=== PATIENT | female | born 1950 | race Caucasian/White ===

== ENCOUNTER 2016-08-28 17:19 | Emergency (ER) | payer MEDICARE, OTHER ==
[2016-08-28 17:53] LABS: Urine Appearance Slightly Cloudy; Urine Color Yellow
[2016-08-28 17:55] LABS: Urine Bilirubin Negative (NEGATIVE); Urine Blood 250 /ul (NEGATIVE); Urine Ketone Negative (NEGATIVE); Urine Nitrite Negative (NEGATIVE); Urine Protein 15 mg/dL (NEGATIVE); Urine Urobilinogen Normal (NORMAL)
[2016-08-28 17:56] LABS: Urine RBC >50 /hpf (0-5)
[2016-08-28 17:58] LABS: Urine Bacteria 1+
--- OUTSIDE RECORDS SUMMARY | 2016-08-28 18:01 | XMS REPORT | Continuity of Care Document ---
:1950 Author Organization [employer] [place] [address] Care Team Providers Name Role Phone Enrike Cordoba Evelina Primary Care Provider [phone] Source Comments This disclosure is being made pursuant to the [employer] program and maynot contain all information available regarding this patient.[employer] Active Allergies and Adverse Reactions Not on File Current Medications Be aware that medications may not be up to date as of this document. Alwaysverify current medications with the patient. Prescription Sig. Disp. Refills Start Date End Date Status levothyroxine (SYNTHROID, Take 75 mcg by Active LEVOTHROID) 75 MCG tablet mouth daily. omeprazole (PRILOSEC) 20 MG Take 20 mg by Active capsule mouth 2 (two) times daily. [id number] Take by mouth. Active (CEREFOLIN PO) buPROPion (WELLBUTRIN) 50 Take 50 mg by Active MG tablet mouth daily. Cetirizine HCl (ZYRTEC PO) Take by mouth. Active [place]-3 Fatty Acids (FISH Take 600 mg by Active OIL) 600 MG capsule mouth daily. Cranberry 250 MG tablet Take 250 mg by Active mouth daily. Cholecalciferol (VITAMIN Take by mouth. Active D-3 PO) metoprolol tartrate Take 25 mg by Active (LOPRESSOR) 25 MG tablet mouth 2 (two) times daily. Active Problems Not on file Social History Tobacco Use Types Packs/Day Years Used Date Never Assessed Last Filed Vital Signs Vital Sign Reading Time Taken Blood Pressure 122/80 02/29/2016 9:08 AM CDT Pulse 70 02/29/2016 9:08 AM CDT Temperature - - Respiratory Rate - - Height - - Weight 99.791 kg (220 lb) 02/29/2016 9:08 AM CDT Body Mass Index - - Oxygen Saturation 97% 02/03/2016 2:07 PM CDT Plan of Care Date Type Specialty Providers Description 09/05/2016 Appointment Family Medicine Enrike Cordoba MD [address] [address] [phone] (Fax) Health Maintenance Due Date Last Done Comments Hepatitis C Screening 10/13/1967 Tetanus/Pertussis (1 - Tdap) 1968 Colonoscopy 10/13/1999 Mammogram 10/13/1999 Well Adult Visit 10/13/1999 Zoster Vaccine 60+ 2009 Bone Density 2014 Pneumococcal Low/Medium Risk 65+ (1 of 2 - PCV13) 2014 Influenza Immunization (#1) 2016 Results from Last 3 Months Not on file
--- NOTE | 2016-08-28 18:19 | ERNOTE ---
Abdominal HPI - General Chief Complaint: Abdominal Pain Time Seen by Provider: 08/28/16 17:51 Source: patient, family Exam Limitations: no limitations - Immun/Allergies/Home Medications Immunizatons: IMMUNIZATION HX Immunizations Up to Date Yes History of Influenza Vaccine No Hx Pneumococcal Vaccination Yes Allergies/Adverse Reactions: Allergies levofloxacin [From Levaquin] Allergy (Verified 08/28/16 17:44) Sulfa (Sulfonamide Antibiotics) Allergy (Verified 02/01/16 15:20) Home Medications: HOME MEDICATIONS Bupropion HCl [Wellbutrin] 50 mg PO DAILY 02/01/16 [Last Taken Unknown] Cetirizine HCl [Zyrtec] 10 mg PO DAILY 02/01/16 [Last Taken Unknown] Levothyroxine Sodium [Synthroid] 75 mcg PO DAILY 02/01/16 [Last Taken Unknown] Omeprazole [Prilosec] 20 mg PO DAILY 02/01/16 [Last Taken Unknown] Vit B12/Lmefolate Ca/Vit B6/B2 [Cerefolin Tablet] 1 each PO DAILY 02/01/16 [ Last Taken Unknown] Vitamin D3 1 tab PO DAILY 02/01/16 [Last Taken Unknown] Estradiol [Divigel] 0.5 mg TD DAILY 08/28/16 [Last Taken Unknown] Fluticasone Propionate [24 Hour Allergy Relief] 15.8 ml NS DAILY 08/28/16 [Last Taken Unknown] Nitrofurantoin/Nitrofuran Mac [Macrobid] 100 mg PO Q12H #14 cap 08/28/16 [Last Taken Unknown] [place]-3/Dha/Epa/Fish Oil [[place] 3 500 Softgel] 300 PO DAILY 08/28/16 [Last Taken Unknown] Singulair 10 mg PO DAILY 08/28/16 [Last Taken Unknown] - History of Present Illness Narrative: Patient was diagnosed with a UTI by her [facility] in [facility] on 08/04 and treated with cefuroxime, her symptoms resolved and she felt okay for a week, then started to have supra pubic pressure and urinary frequency again and was started on clindamycin four days ago, three days ago she started to have diarrhea, watery, multiple times and worse lower abdominal pressure.She took two doses of imodium yesterday and since then she has only had a few small bowel movements. She is also drinking a lot of cranberry juice. Modifying Factors - (Improves): Present: other - bending forward Modifying Factors - (Worsens): Absent: breathing, coughing Associated Symptoms: Present: diarrhea-gross blood, nausea. Absent: back pain, chest pain, fever/chills, vomiting Prior Treatment: Present: currently on antibiotics. Absent: recently seen Review of Systems - Review of Systems Constitutional: Present: recent illness, malaise. Absent: fever, chills ENT: Absent: nose congestion, nasal drainage, sore throat Respiratory: Absent: shortness of breath, cough Cardiology: Absent: chest pain Gastrointestinal/Abdominal: Present: See HPI, nausea. Absent: vomiting Genitourinary: Present: frequency Musculoskeletal: Absent: back pain Skin: Absent: rash Neurological: Absent: headache - Patient's Past Medical History Patient History - Medical: Depression, GERD, Hypothyroidism, UTI'S Patient History - Cardiac/Respiratory: No pertinent hx Patient History - Cancer: No Hx of Cancer Patient History - Surgical Procedures: D & C, Hysterectomy, Tubal Ligation, Other, Urology Patient History - Other: None - Social History Living Situations: spouse Abuse History: No History of abuse Psych History: Hx of Depression Smoking Status: Never smoker Have you smoked in the past 12 months: No Do you dip or chew tobacco: No Alcohol Use: none Drug Use: none - Immunizations Immunizations Up to Date: Yes Hx Pneumococcal Vaccination: Yes History of Influenza Vaccine: No Physical Exam - Physical Exam General Appearance: Present: wd/wn, alert, no apparent distress, anxious Ears, Nose, Throat: Present: normal pharynx Respiratory: Present: no respiratory distress, normal breath sounds, no accessory muscle use, lungs clear Cardiovascular/Chest: Present: regular rate, rhythm, no murmur Gastrointestinal/Abdominal: Present: normal bowel sounds, nondistended, tenderness - suprapubic Back Exam: Present: no CVA tenderness Extremity Exam: Present: no edema Neurological Exam: Present: alert, oriented, normal mood/affect Skin Exam: Present: normal color, warm/dry ED Progress - Results and Orders Patient's Lab Results:: I have reviewed the patient's lab results. - Vital Signs Patient's Vital Signs:: I have reviewed the patient's vital signs. Vital Signs: Vital Signs 08/28/16 17:34 Temperature 37.6 C H Pulse Rate 85 Respiratory 16 Rate Blood Pressure 148/86 O2 Sat by Pulse 96 Oximetry - X-Ray X-Ray #1 X-Ray: abdomen - non specific gas pattern, fair amount of stool Interpretation: Interp. by me - Progress/Reassessment Chief Complaint: Abdominal Pain Progress Note-Subjective: 08/28/16 19:33 discussed results and plan with patient and Departure - Departure Clinical Impression: UTI (urinary tract infection) Qualifiers: Urinary tract infection type: acute cystitis Hematuria presence: with hematuria Qualified Code(s): N30.01 - Acute cystitis with hematuria Disposition: Home self-care Condition: Good Instructions: Urinary Tract Infection, Adult, Ifen-iw-Ovzu Additional Instructions: call tomorrow to get established with a family doctor Referrals: Sabina Blackwell DO [Staff Physician] - Prescriptions: Nitrofurantoin/Nitrofuran Mac [Macrobid] 100 mg PO Q12H #14 cap
[2016-08-28 18:28] LABS: Hematocrit 41.1 % (37.0-47.0); Hemoglobin 13.9 gm/dL (12.5-16.0); Mean Cell Volume 88.4 fl (78-100); Mean Corpuscular Hemoglobin 29.9 pg (27-31); Mean Corpuscular Hgb Conc 33.8 g/dl (32-36); Neutrophil # 5.1 K/mm3 (1.3-6.0); Neutrophil % 71.8 % (42-75.0); Platelet Count 225 K/mm3 (150-450); Red Blood Count 4.65 M/mm3 (4.2-5.4); Red Cell Distribution Width 12.1 % (11.5-14.0); White Blood Count 7.1 K/mm3 (4.0-10.5)
[2016-08-28 18:45] LABS: Bacteria Many; White Blood Count None Seen; Yeast Many
[2016-08-28 19:04] LABS: Albumin * 3.7 gm/dl (3.4-5.0); Anion Gap 11.4 mmol/L (6.8-13.8); BUN/Creatinine Ratio 16.9 (9.0-21.6); Bilirubin, Total 0.5 mg/dL (0.0-1.1); Ca. Corrected For Albumin 8.7 mg/dL (8.4-10.2); Calcium * 8.8 mg/dL (7.9-10.9); Carbon Dioxide 30.5 mmol/L (24-32.6); Potassium 3.9 mmol/L (3.4-4.6); Total Protein 7.3 gm/dL (6.2-8.2)
[2016-08-28] MEDS ORDERED: NITROFURANTOIN/NITROFURAN MAC 100 MG CAPSULE PO ONE (19:28)
[2016-08-28] MEDS ORDERED: NITROFURANTOIN/NITROFURAN MAC 100 MG CAPSULE ONE (19:37)
[2016-08-28 19:49] VITALS: BP 133/73
== END 2016-08-28 19:48 | disposition home or self-care (01) ==
LOC: ER 17:19
DX: N30.01 Acute cystitis with hematuria (principal); K21.9 Gastro-esophageal reflux disease without esophagitis; E03.9 Hypothyroidism, unspecified